=== PATIENT | female | born 1975 | race African-American/Black ===

== ENCOUNTER 2019-06-20 03:38 | Emergency (ER) | payer MEDICAID ==
[~2019-06-20] VITALS: Ht 172.7 cm; Wt 145.1 kg
[2019-06-20] MEDS ORDERED: ACETAMINOPHEN 325 MG TAB PO ONE (07:30)
[2019-06-20] MEDS ORDERED: SILVER SULFADIAZINE 1 % TOPICAL CREAM 50GM TOP ONE (07:30)
[2019-06-20 07:39] VITALS: BP 126/47
== END 2019-06-20 07:54 | disposition home or self-care (01) ==
LOC: ER 03:41
DX: T24.211A Burn of second degree of right thigh, initial encounter (principal); T31.0 Burns involving less than 10% of body surface; X10.2XXA Contact with fats and cooking oils, initial encounter; Y93.89 Activity, other specified; Y99.8 Other external cause status; Y92.89 Other specified places as the place of occurrence of the external cause
CPT/HCPCS: 16020; 81002

== ENCOUNTER 2024-07-06 19:39 | Emergency (ER) | payer SELFPAY ==
[~2024-07-06] VITALS: Ht 170.2 cm; Wt 172.5 kg
[2024-07-06 21:34] VITALS: BP 146/91; PULSE 83; RESP 16; TEMP 98.4; O2SAT 95
[2024-07-06] MEDS ORDERED: ACET500T58 PO (22:51)
[2024-07-06] MEDS ORDERED: AMOX875T4 PO (22:51)
[2024-07-06] MEDS: BENZOCAINE (DENTAL) 20 % SPRAY 60ML MT ONE (23:03)
== END 2024-07-06 23:16 | disposition home or self-care (01) ==
LOC: ER 19:39
DX: K04.7 Periapical abscess without sinus (principal); Z88.0 Allergy status to penicillin; Z98.890 Other specified postprocedural states

== ENCOUNTER 2024-12-13 16:46 | Emergency (ER) | payer MEDICAID ==
[~2024-12-13] VITALS: Ht 170.2 cm; Wt 172.0 kg
[~2024-12-13 16:46] MED LIST: ACET500T58 PO; AMOX875T4 PO
--- NOTE | 2024-12-13 18:27 | DVH ---
CLINICAL INDICATION: pain TECHNIQUE: 3 radiographic views of the left shoulder were obtained. Comparison: None FINDINGS/IMPRESSION: Deformity of the greater tuberosity of the proximal left humerus suggesting Hill-Sachs deformity kirk elate with any history of previous dislocation. The visualized joint space is well maintained. The alignment is anatomical. There is no radiopaque foreign body.
--- NOTE | 2024-12-13 19:01 | ED.PDOC ---
Musculoskeletal HPI Comments 49 year old female presents to ER with complaints of left arm pain x 1 day. Patient states she started experiencing 06/23 "burning" left shoulder pain with radiation towards left elbow at 12 pm today. Denies any trauma/injury/heavy lifting and denies use of medications for current symptoms. Patient presents to ER ambulatory on arrival, with steady gait, in no distress. Denies numbness/tingling, chest pain, extremity weakness or any further sympto ms/complaints Chief Complaint: Upper Extremity Time Seen by MD: 18:10 Primary Care Provider: gabriel Reviewed Notes: Nurses Notes, Medications, Allergies Allergies: Coded Allergies: Penicillins (Verified Allergy, Unknown, 06/20/19) Home Meds Active Scripts Acetaminophen W/ Codeine (Tylenol W/Cod #3) 1 Tab Tb, 1 TAB PO Q6HPRN PRN, #10 TAB 0 Refills Prov:EDWARD ONEILL 12/13/24 Acetaminophen (Acetaminophen) 500 Mg Tab, 500 MG PO Q4HPRN, #30 TAB 0 Refills Prov:EDWARD ONEILL 07/06/24 Amoxicillin & Pot Clavulanate (Amoxicillin/Potassium Cla) 875 Mg Tab, 1 TAB PO BID for 7 Days, #14 TAB 0 Refills Prov:EDWARD ONEILL 07/06/24 Information Source: Patient Mode of Arrival: Ambulatory Past Medical History PAST MEDICAL HISTORY: Cancer, PE Surgical History: Surgical History (Other): Colostomy WELL LOGGER History: No Pertinent WELL LOGGER History Family History Family History: Unknown Social History Smoker: Non-Smoker Alcohol: Denies ETOH Use Drugs: Denies Drug Use Lives In: Home Constitutional: denies: chills, diaphoresis, fatigue, fever, malaise, sweats, weakness, others EENTM: denies: blurred vision, double vision, ear bleeding, ear discharge, ear drainage, ear pain, ear ringing, eye pain, eye redness, hearing loss, mouth pain, mouth swelling, nasal discharge, nose bleeding, nose congestion, nose pain, photophobia, tearing, throat pain, throat swelling, voice changes, others Respiratory: denies: cough, hemoptysis, orthopnea, SOB at rest, shortness of breath, SOB with excertion, stridor, wheezing, others Cardiovascular: denies: chest pain, dizzy spells, diaphoresis, Dyspnea on exertion, edema, irregular heart beat, left arm pain, lightheadedness, palpitations, PND, syncope, others Gastrointestinal: denies: abdomen distended, abdominal pain, blood streaked bowels, constipated, diarrhea, dysphagia, difficulty swallowing, hematemesis, melena, nausea, poor appetite, poor fluid intake, rectal bleeding, rectal pain, vomiting, others Genitourinary: denies: abnormal vagina bleeding, burning, dyspareunia, dysuria, flank pain, frequency, hematuria, incontinence, pain, , vagina discharge, urgency, others Neurological: denies: dizziness, fainting, headache, left sided numbness, left sided weakness, numbness, paresthesia, pre-existing deficit, right sided numbness, right sided weakness, seizure, speech problems, tingling, tremors, weakness, others Musculoskeletal: reports: others (As stated in HPI) Integumetry: denies: bruises, change in color, change in hair/nails, dryness, laceration, lesions, lumps, rash, wounds, others Allergic/Immunocompromised: denies: Difficulty Healing, Frequent Infections, Hives, Itching, others Hematologic/Lymphatic: denies: anemia, blood clots, easy bleeding, easy bru ising, swollen glands, others Endocrine: denies: excessive hunger, excessive sweating, excessive thirst, e xcessive urination, flushing, intolerance to cold, intolerance to heat, unexplained weight gain, unexplained weight loss, others Psychiatric: denies: anxiety, bipolar disorder, depression, hopeless, panic disorder, schizophrenia, sleepless, suicidal, others Physical Exam General Appearance: No Apparent Distress, Obese HEENT: PERRL/EOMI Neck: Full Range of Motion, Non-Tender, Normal Respiratory: Chest Non-Tender, Lungs Clear, No Accessory Muscle Use, No Respiratory Distress, Normal Breath Sounds Cardiovascular: No Murmur, No Gallop, Regular Rate/Rhythm Breast Exam: Deferred Gastrointestinal: NOT DONE Genitalia: Deferred Pelvic: Deferred Rectal: Deferred Extremities: Normal capillary refill, Normal range of motion Musculoskeletal : Extremity Location: Shoulder (TTP to left proximal humerus noted. No skin changes/deformity noted. Patient able to fully move the left shoulder without difficulty. Negative Apley scratch test left shoulder. 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 Was a procedure done?: No Sedation Sedation?: No EKG EKG : Pulse Rate (adult): 70 Cardiac Rhythm: NSR (SR) Differential Diagnosis EXT Differential Diagnosis: Deep Vein Thrombosis, Fracture, Dislocation, Myocardial Infarction, Neurovascular injury X-Ray, Labs, Meds, VS Vital Signs Date Time Temp Pulse Resp B/P (MAP) Pulse Ox O2 Delivery O2 Flow Rate FiO2 12/13/24 19:31 98.4 18 99 126/56 (79) 88 98.4 12/13/24 19:30 70 12/13/24 19:28 Room Air* 0 21 12/13/24 19:24 70 12/13/24 16:57 98.4 88 18 126/56 (79) 99 98.4 Lab Test 12/13/24 19:07 Range/Units White Blood Count 7.5 4.4-10.8 10^3/uL Red Blood Count 4.78 4.0-5.20 10^6/uL Hemoglobin 12.5 12.2-16.2 g/dL Hematocrit 39.5 36.0-46.0 % Mean Corpuscular Volume 82.5 80.0-100.0 fL Mean Corpuscular Hemoglobin 26.2 L 28.0-32.0 pg Mean Corpuscular Hemoglobin Concent 31.8 L 32.0-36.0 g/dL Red Cell Distribution Width 16.4 H 11.8-14.3 % Platelet Count 273 140-450 10^3/uL Mean Platelet Volume 8.7 6.9-10.8 fL Neutrophils (%) (Auto) 57.7 37.0-80.0 % Lymphocytes (%) (Auto) 34.8 10.0-50.0 % Monocytes (%) (Auto) 5.8 0.0-12.0 % Eosinophils (%) (Auto) 0.6 0.0-7.0 % Basophils (%) (Auto) 1.1 0.0-2.0 % Neutrophils # (Auto) 4.3 1.6-8.6 10 ^3/uL Lymphocytes # (Auto) 2.6 0.4-5.4 10 ^3/uL Monocytes # (Auto) 0.4 0-1.3 10 ^3/uL Eosinophils # (Auto) 0 0-0.8 10 ^3/uL Basophils # (Auto) 0.1 0-0.2 10 ^3/uL Nucleated Red Blood Cells 0.2 % D-Dimer, Quantitative 0.39 0.0-0.49 mg/L FEU Sodium Level 142 136-145 mmol/L Potassium Level 3.9 3.5-5.1 mmol/L Chloride Level 107 98-107 mmol/L Carbon Dioxide Level 28 20-31 mmol/L Anion Gap 7 5-15 Blood Urea Nitrogen 11 9-23 mg/dL Creatinine 0.88 0.550-1.02 mg/dL Glomerular Filtration Rate Calc 81 >90 mL/min BUN/Creatinine Ratio 12.5 10.0-20.0 Serum Glucose 93 74-106 mg/dL Calcium Level 9.9 8.7-10.4 mg/dL Troponin I High Sensitivity < 3 L </=34 ng/L PATIENT: CAROLYN MOCKCCT: [id number]: [id number] : 1975 LOC: ER ROOM / BED: / AGE / SEX: 49 / F ADM STATUS: REG ER SERVICE 55 ORDERING PHYSICIAN: TELLY BONILLA NP PROCEDURE(s): LSHD2 - L SHOULDER 2+ VIEW XRAY REASON: pain ORDER NUMBER(s): [id number], ACCESSION NUMBER(s): [id number] CLINICAL INDICATION: pain TECHNIQUE: 3 radiographic views of the left shoulder were obtained. Comparison: None FINDINGS/IMPRESSION: Deformity of the greater tuberosity of the proximal left humerus suggesting Hill-Sachs deformity correlate with any history of previous dislocation. The visualized joint space is well maintained. The alignment is anatomical. There is no radiopaque foreign body. ATED BY: MARCUS ARTEAGA Jr., DO DICTATED DATE/TIME: 12/13/241824 SIGNED BY: MARCUS ARTEAGA Jr., DO SIGNED DATE/TIME: 12/13/24 1825 CC: PATIENT: HAILEE MOCK ACCT: [id number]: [id number] : 1975 LOC: ER ROOM / BED: / AGE / SEX: 49 / F ADM STATUS: REG ER SERVICE [id number] ORDERING PHYSICIAN: EDWARD ONEILL PROCEDURE(s): LUDVT - LT Upper DVT REASON: left arm pain ORDER NUMBER(s): [id number], ACCESSION NUMBER(s): [id number] LEFT UPPER EXTREMITY VENOUS ULTRASOUND CLINICAL HISTORY: left arm pain COMPARISON: None TECHNIQUE: Grayscale ultrasound with compression, color Doppler, and spectral Doppler of the deep venous system of the left upper extremity from the base of the neck through the elbow performed. FINDINGS: Left internal jugular vein: Negative Left subclavian vein: Negative Left axillary vein: Negative Left brachial veins:Negative Left basilic vein: Negative Left cephalic vein: Negative IMPRESSION: No sonographic evidence of deep venous thrombosis in the left upper extremity at this time. ATED BY: SY BOOGIE MD DICTATED DATE/TIME: 12/13/242042 SIGNED BY: SY BOOGIE MD SIGNED DATE/TIME: 12/13/242042 CC: CBC and BMP reviewed without any significant abnormalities Troponin reviewed-normal D-dimer reviewed-normal EKG reviewed Left shoulder x-ray reviewed Left upper DVT ultrasound reviewed Patient neurovascularly intact and reported improvement in symptoms prior to dis charge Advised on rest/no strenuous activity and elevation Advised to follow up with PCP and orthopedics in 1-2 days Patient verbalized understanding and agreeable with current plan of care Advised to return to ER immediately if symptoms worsen Time of 1ST Reevaluation: 18:52 Reevaluation 1ST: N/A Time of 2ND Reevaluation: 20:30 Reevaluation 2ND: Improved Patient Education/Counseling: Diagnosis, Treatment, Prognosis, Need For Follow Up Family Education/Counseling: No Family Present Departure 1 Departure Time of Disposition: 20:32 Impression: Primary Impression: Left shoulder strain Qualified Codes: S46.912A - Strain of unspecified muscle, fascia and tendon at shoulder and upper arm level, left arm, initial encounter Additional Impression: Hill Sachs deformity, left Disposition: HOME / SELF CARE / HOMELESS Condition: Stable e-Prescriptions Acetaminophen W/ Codeine (Tylenol W/Cod #3) 1 Tab Tb 1 TAB PO Q6HPRN PRN, #10 TAB 0 Refills Prov: EDWARD ONEILL 12/13/24 Discharged With: Friend Critical Care Note Critical Care Time?: No Stability Stability form required: No Heart Score Heart Score: Heart Score Response (Comments) Value History N/A 0 EKG N/A 0 Age N/A 0 Risk Factors N/A 0 Troponin N/A 0 Total 0 EDWARD ONEILL Dec 13, 2024 19:01
--- NOTE | 2024-12-13 19:26 | ECG ---
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
[2024-12-13 19:31] VITALS: BP 126/56; PULSE 18; RESP 99; TEMP 98.4; O2SAT 88
[2024-12-13 19:43] LABS: Basophils # (auto) 0.1 10 ^3/uL (0-0.2); Hemoglobin 12.5 g/dL (12.2-16.2); Neutrophils # (auto) 4.3 10 ^3/uL (1.6-8.6)
[2024-12-13 19:45] LABS: Basophils % (auto) 1.1 % (0.0-2.0); Eosinophils # (auto) 0 10 ^3/uL (0-0.8); Eosinophils % (auto) 0.6 % (0.0-7.0); Hematocrit 39.5 % (36.0-46.0); Lymphocytes # (auto) 2.6 10 ^3/uL (0.4-5.4); Lymphocytes % (auto) 34.8 % (10.0-50.0); Mean Corpuscular Hemoglobin 26.2 pg (28.0-32.0); Mean Corpuscular Hgb Conc. 31.8 g/dL (32.0-36.0); Mean Corpuscular Volume 82.5 fL (80.0-100.0); Monocytes # (auto) 0.4 10 ^3/uL (0-1.3); Monocytes % (auto) 5.8 % (0.0-12.0); Neutrophils % (auto) 57.7 % (37.0-80.0); Nucleated Red Blood Cells % 0.2 %; Platelet Count (auto) 273 10^3/uL (140-450); Red Blood Cells 4.78 10^6/uL (4.0-5.20); Red Cell Distribution Width 16.4 % (11.8-14.3); White Blood Cell 7.5 10^3/uL (4.4-10.8)
[2024-12-13 19:58] LABS: Potassium 3.9 mmol/L (3.5-5.1); Sodium 142 mmol/L (136-145)
[2024-12-13 19:59] LABS: Anion Gap 7 (5-15); Calcium 9.9 mg/dL (8.7-10.4); Carbon Dioxide 28 mmol/L (20-31)
[2024-12-13 20:04] LABS: BUN/Creatinine Ratio 12.5 (10.0-20.0); Blood Urea Nitrogen 11 mg/dL (9-23); Glucose 93 mg/dL (74-106)
[2024-12-13 20:09] LABS: Chloride 107 mmol/L (98-107)
[2024-12-13] MEDS ORDERED: ACE3T PO (20:34)
--- NOTE | 2024-12-13 20:45 | DVH ---
LEFT UPPER EXTREMITY VENOUS ULTRASOUND CLINICAL HISTORY: left arm pain COMPARISON: None TECHNIQUE: Grayscale ultrasound with compression, color Doppler, and spectral Doppler of the deep lisa ous system of the left upper extremity from the base of the neck through the elbow performed. FINDINGS: Left internal jugular vein: Negative Left subclavian vein: Negative Left axillary vein: Negative Left brachial veins:Negative Left basilic vein: Negative Left cephalic vein: Negative IMPRESSION: No sonographic evidence of deep venous thrombosis in the left upper extremity at this time.
== END 2024-12-13 20:55 | disposition home or self-care (01) ==
LOC: ER 16:48
DX: S46.812A Strain of other muscles, fascia and tendons at shoulder and upper arm level, left arm, initial encounter (principal); S43.015A Anterior dislocation of left humerus, initial encounter; M25.522 Pain in left elbow; Z88.0 Allergy status to penicillin; X58.XXXA Exposure to other specified factors, initial encounter; Y92.89 Other specified places as the place of occurrence of the external cause; Y99.8 Other external cause status
CPT/HCPCS: 36415; 73030; 80048; 84484; 85025; 85379; 93005; 93971